=== PATIENT | female | born 1990 | race Caucasian/White ===

== ENCOUNTER 2016-06-26 07:56 | Day surgery (SDC) | payer OTHER ==
[~2016-06-26 07:56] MED LIST: Bupivacaine 0.5%/EPINEPHrine 1:200,000 50 ML MDV ONE; Dexamethasone 4 MG/ML 5 ML MDV ONE; HYDROmorphone 1 MG/ML Syringe ONE; Ketorolac 30 MG/ML SDV ONE; Lactated Ringers 1,000 ML IV SCH; Lidocaine 1% with EPINEPHrine 1:100,000 20 ML MDV ONE; Lidocaine 1%/Sod Bicarbonate in NS 8.4% 1 ML Syringe IV PRN; Midazolam 1 MG/ML 2 ML SDV ONE; Ondansetron 4 MG/2 ML SDV ONE; Propofol 200 MG/20 ML SDV ONE; Rocuronium 50 MG/5 ML Vial ONE; Sodium Chloride 0.9% 10 ML ONE; Sodium Chloride 0.9% 10 ML Syringe FLUSH PRN; ceFAZolin 1 GM Vial ONE; fentaNYL 250 MCG/5 ML SDV ONE
--- NOTE | 2016-06-26 08:49 | PCM.HP ---
Addendum entered and electronically signed by Marie Blair NP 06/26/16 09:46: Patient is no longer having rectal bleeding. Original Note: H&P History of Present Illness - General Date of Service: 06/26/16 Admit Problem/Dx: Abnormal/symptomatic HIDA scan, postprandial diarrhea, hx of rectal bleeding, upper abdominal pain with eating fatty meals Source of Information: Patient - History of Present Illness Initial Comments - Free Text/Narative: 26yr female who was initially referred by Dr. Meaghan Holder for hematochezia. The patient underwent diagnostic EGD/colonoscopy with polypectomy and excision of multiple skin lesions with Dr. Krista Lincoln at [facility] on 12/28/15 . Patient had a very large polyp removed from 60 cm from anal verge that was a tubular adenoma with high grade dysplasia, a one year follow up colonoscopy was recommended. Patient reported that hematochezia had resolved at the follow up appointment with Dr. Lincoln on 01/18/16. Gastritis and very small gastric ulcers were noted. GERD/gastritis diet was recommended. One month course of Carafate was recommended. Protonix 40 mg x 6 months was recommended. Skin lesions removed were compound nevi without atypia. She did also have internal hemorrhoids, banding was recommended with symptom recurrence. Stool studies were obtained and were negative with the exception of a few WBC in fecal lactoferrin test. Patient was last evaluated in clinic on 2016. She denies any changes to her health history with the exception that her rectal bleeding has decreased. She still having diarrhea every so often usually notices it when she is eatin out. She's no longer taking ibuprofen. She did not stop the Isagenix supplement as recommended. She reports a 13 pound weight loss. She is not taking Protonix consistently as recommended. At her last clinic visit she was still having rectal bleeding. She was having small amounts of blood in the toilet and with wiping. She was having blood on the stool with wiping. It was not with every bowel movement. It was occurring every third bowel movement. She was lower abdominal cramping, occasionally before stooling and during stooling. This was better after BM. She still has 2- 3 stools per day. She denies nausea/vomiting/constipation. Occasional diarrhea 3 -4 times per week. When she Started an Isagenix diet was having diarrhea with every stool. She was taking the 30 day Isagenix system. After taking the Cleanse for Life she did have a mucus, bloody discharge from her rectum, this was without having a stool. No reflux, heartburn, epigastric pain. She does have abdominal, upper/mid abdominal pain after eating out, will induce a diarrhea stool. She does have post prandial diarrhea at times, when she has not eaten out. She noted this with eating meatloaf at home. She does have urgency with stooling at times. She denies any ill contacts/bad water/ questionable food/antibiotics. No melena reported. Reports light colored/harrison stools "forever." She previously reported her symptoms came back shortly after endoscopy. She reports she does feel better than she did before the endoscopy, but still does not feel normal. She did have labs after last visit. CBC showed elevated: WBC count (13.6), ANS ( 8.6), and Monocytes (1.2). These are down from 10/2015, which are as follows: WBC 14.6, ANS 9.9, Monocyte 1.1. Hepatic fx tests normal with the exception of slightly increased protein 8.4. BMP was normal. C diff was not completed by patient. Abdominal ultrasound showed no gallstones. No gallbladder wall thickening or biliary duct dictation. Probably fatty infiltration within the liver. HIDA scan was completed on 05/02/2016 showed gallbladder ejection fraction low at 32%. Patient reported she had a stomachache after and had a stool when she came home. At one point she was taking 4 ibuprofen twice per week for headaches. She was also not taking the Protonix. She started the Protonix, after last visit. As above Protonix use is inconsistent. Headaches have started to go away. No longer taking ibuprofen. José Antonio gave her a FODMAP book , she did not try this. She previously was uncertain if she has hemorrhoids and declined rectal exam. Denies any exertional chest pain or shortness of breath. No history of any easy bleeding or bruising. No personal or familial history of clotting or bleeding disorders. No history of anesthetic complications. No history of familial anesthetic complications. Presently denies chest pain, palpitations, lower extremity edema, dyspnea, orthopnea, claudication, wheezing, obstructive sleep apnea, chronic cough, upper respiratory symptoms in the last two weeks. No history of blood thinner use. No history of anemia. Is not . No history of seizure or stroke. No prior cardiology or pulmonology evaluation - Related Data Allergies/Adverse Reactions: Allergies Allergy/AdvReac Type Severity Reaction Status Date / Time No Known Allergies Allergy Verified 06/25/16 13:58 Home Medications: Home Meds Pantoprazole [Protonix] 40 mg PO DAILY #30 tab.cr 12/28/15 [Rx] Aspirin 81 mg PO DAILY 06/25/16 [History] Ibuprofen 1 - 3 tab PO Q6H PRN 06/25/16 [History] Past Medical History HEENT History: Reports: Impaired vision, Other (see below) Other HEENT History: myopia, wears glasses Cardiovascular History: Reports: None Respiratory History: Reports: None Gastrointestinal History: Reports: Colon polyp, Gastritis, Other (see below) Other Gastrointestinal History: hematochezia, blood in stool, fatty liver, gastric ulcer, high grade dysplasia in colonic adenoma Genitourinary History: Reports: None, UTI, 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) Other OB/BYN History: irreg menses Musculoskeletal History: Reports: Back pain, chronic Neurological History: Reports: Headaches, chronic Psychiatric History: Reports: None Endocrine/Metabolic History: Reports: Other (see below) Other Endocrine/Metabolic History: fatigue Hematologic History: Reports: None Immunologic History: Reports: None Oncologic (Cancer) History: Reports: None - Past Surgical History Head Surgeries/Procedures: Reports: None HEENT Surgical History: Reports: Oral surgery, Other (see below) Other HEENT Surgeries/Procedures: teeth extraction GI Surgical History: Reports: Colonoscopy, EGD Dermatological Surgical History: Reports: Other (see below) Social & Family History - Tobacco Use Smoking Status *Q: Never Smoker Second Hand Smoke Exposure: No - Alcohol Use Days Per Week of Alcohol Use: 0 Number of Drinks Per Day: 0 Total Drinks Per Week: 0 - Recreational Drug Use Recreational Drug Use: No H&P Review of Systems - Review of Systems: Review Of Systems: See Below General: Reports: no symptoms. Denies: fever, chills, night sweats, diaphoresis HEENT: Reports: no symptoms Pulmonary: Reports: No Symptoms Cardiovascular: Reports: no symptoms Gastrointestinal: Reports: Other (see hpi) Genitourinary: Reports: no symptoms Musculoskeletal: Reports: no symptoms Skin: Reports: no symptoms Psychiatric: Reports: no symptoms Neurological: Reports: No Symptoms Hematologic/Lymphatic: Reports: no symptoms Immunologic: Reports: no symptoms Exam - Exam Exam: See Below - Vital Signs Vital Signs: Last Vital Signs Temp 96.4 F 06/26/16 08:17 Pulse 73 06/26/16 08:17 Resp 16 06/26/16 08:17 BP 124/80 06/26/16 08:17 Pulse Ox 95 06/26/16 08:17 Weight: 111.584 kg - Exam General: alert, oriented HEENT: Conjunctiva clear, Hearing intact. No: Scleral icterus Lungs: Clear to auscultation, Normal respiratory effort Cardiovascular: regular rate, regular rhythm, normal S1, normal S2 Abdomen: soft. No: distention, tenderness Back Exam: normal inspection Extremities: normal inspection. No: clubbing, cyanosis, edema Skin: warm, dry, intact Neuro Extensive - Mental Status: alert, oriented x3, normal mood/affect, normal cognition, memory intact Psychiatric: alert, normal affect, normal mood - Patient Data Lab Results last 24 hrs: Laboratory Results - last 24 hr 06/26/16 Range/Units 08:05 Urine HCG, Qual Negative (NEGATIVE) *Q Meaningful Use (ADM) - VTE *Q VTE Criteria *Q: - Stroke *Q Stroke Criteria *Q: - AMI *Q AMI Criteria *Q: Problem List Initiated/Reviewed/Updated: Yes Orders Last 24hrs: Active Orders 24 hr Category Date Time Status Peripheral IV Care [RC] . DIRECTED Care 06/26/16 00:01 Active Verify Patient Consent Obtain [RC] ASDIRECTED Care 06/26/16 00:01 Active Lactated Ringers [Ringers, Lactated] 1,000 ml Med 06/26/16 00:01 Active IV ASDIRECTED Lidocaine 1%/Sod Bicarbonate [Buffered Lidocaine 1% in Med 06/26/16 00:01 Active NS 8.4%] 0.25 ml IV ONETIME PRN Sodium Chloride 0.9% [Saline Flush] Med 06/26/16 00:01 Active 10 ml FLUSH ASDIRECTED PRN Medication Administration Instruction [OM.PC] Routine Oth 06/26/16 00:01 Ordered Peripheral IV Insertion Adult [OM.PC] Routine Oth 06/26/16 00:01 Ordered Medication Orders Lactated Ringer's (Ringers, Lactated) 1,000 mls @ 125 mls/hr IV ASDIRECTED JALIL Stop: 06/26/16 23:00 Last Admin: 06/26/16 08:25 Dose: 125 mls/hr Lidocaine/Sodium Bicarbonate (Buffered Lidocaine 1% In Ns 8.4%) 0.25 ml IV ONETIME PRN PRN Reason: Prior to IV Start Stop: 06/26/16 18:00 Last Admin: 06/26/16 08:25 Dose: 0.25 ml Sodium Chloride (Saline Flush) 10 ml FLUSH ASDIRECTED PRN PRN Reason: Keep Vein Open Stop: 06/26/16 18:00 Assessment/Plan Comment:: 26yr female with history of high grade dysplasia in colonic adenoma, hx of hematochezia, hx of rectal bleeding, hx of hemorrhoids, diarrhea, post prandial diarrhea, urgency with stools, light colored stools, lower abdominal cramping, hx of gastritis and gastric ulcers. Low ejection fraction and Symptomatic HIDA Fatty liver Plan: Dr. Lincoln Discussed performing laparoscopic cholecystectomy due to low EF (32% ) and right upper quadrant abdominal pain after fatty meals. The patient is also having postprandial diarrhea. At the same time, Dr. Lincoln will will look in her lower abdomen for any evidence of fibroid tumors, ovarian or uterine abnormalities, or endometriosis. Patient's rectal bleeding has improved. Patient elected not to have hemorrhoidal banding completed this time. Should rectal bleeding recur hemorrhoidal banding can be performed in office. We discussed laparoscopic cholecystectomy for treatment of abnormal HIDA and associated symptoms. We discussed risks of the procedure including pain, bleeding, need for additional procedures, damage to surrounding structures including the biliary system and common bile duct, liver, small bowel, stomach and colon. We discussed the risk of postoperative change in bowel habits which can be permanent. We reviewed the post-operative lifting restrictions of no more than 20 lbs for 4 weeks. The patient's questions were answered. For the probable fatty liver infiltration patient and recommended low-fat low simple carbohydrate primary care provider for monitor liver enzymes. Discussed again she stop the Isagenix supplement as there are gastric irritants and cathartics in all the supplements. These will worsen her symptoms. she should try to eat a lower simple carbohydrate diet, higher protein, focusing on whole foods. Again discussed She should continue a GERD gastritis diet and continue her Protonix. The patient verbalized understanding and agreed with care plan. Patient evaluated with Dr. Lincoln, plan formulated by Dr. Salazar Blair, HAND METHOD LASTING MACHINE OPERATOR-C scribing for Dr. Krista Lincoln General Surgery .
[2016-06-26] MEDS ORDERED: fentaNYL 100 MCG/2 ML SDV ONE (10:48)
--- NOTE | 2016-06-26 11:07 | PCM.OPNOTE ---
- General Post-Op/Procedure Note Date of Surgery/Procedure: 06/26/16 Operative Procedure(s): Laparoscopic cholecystectomy Pre Op Diagnosis: Biliary dyskinesia Post-Op Diagnosis: Chronic cholecystitis Anesthesia Technique: General ET tube, Local (30 mL) Primary Surgeon: Krista Lincoln Anesthesia Provider: Meaghan Negron Pathology: Gallbladder and contents Fluid Replacement, Intraop: 1,800 (mL crystalloid) EBL in mLs: 5 Complications: None Condition: Good Free Text/Narrative:: INDICATION FOR PROCEDURE: The patient is a 26-year-old woman who had been referred to me by Dr. Meaghan Holder. She was found to have biliary dyskinesia. Laparoscopic cholecystectomy was discussed with the patient and associated risks of the procedure. The patient found these risks acceptable and agreed to proceed. DESCRIPTION OF PROCEDURE: The patient was taken to the operating room and placed in the supine position. Sequential compressive devices were placed on the bilateral lower extremities. After induction of general endotracheal anesthesia, the abdomen was prepped and draped in the usual sterile fashion. Preoperative antibiotics had been administered as per protocol. A supraumbilical curvilinear incision was made using a scalpel. This was deepened down through the subcutaneous tissues to the anterior abdominal wall fascia which was elevated and incised. The abdomen was bluntly entered using a hemostat. An 0 Vicryl stay suture was placed. A Huitron cannula was introduced into the abdomen and the abdomen was insufflated to 15 mm of mercury. The abdomen was then surveyed. The patient's bladder was slightly distended and the uterus and ovaries were unable to be visualized despite steep Trendelenburg. The appendix was unremarkable. The visualized portions of the small large intestine were unremarkable. The liver appeared to have slight fatty change. Attention was turned then to the patient's gallbladder which was white in color with omental adhesions and adhesions to the duodenum. Two additional 5 mm trocars were then placed under direct visualization after first injecting local anesthetic, one in the epigastrium and one in the right subcostal margin. The gallbladder fundus was elevated, and the triangle of Calot was dissected. A retraction suture was placed in the gallbladder fundus to facilitate dissection. The critical view of safety was obtained. The cystic duct and the cystic artery were triply clipped and transected using Endo Paieg. The gallbladder was then taken off the liver bed using hook electrocautery. The gallbladder was placed into an EndoCatch bag. The abdomen was irrigated and suctioned until the effluent was clear. The liver bed was reinspected for hemostasis. The 5 mm trocars were removed with no evidence of bleeding. The Huitron cannula and gallbladder within the EndoCatch bag were then removed. The patient's fascial incision was closed using an 0 Vicryl [id number] suture. Additional local anesthetic was injected jelani-incisionally. The incisions were then closed using subcuticular 4-0 Monocryl suture. Dermabond was placed over the patient's skin incisions. The patient was then awakened from anesthesia, extubated, and transferred to the recovery room in stable condition having tolerated the procedure well. Sponge and instrument counts were reported as correct at the end of the case. POSTOPERATIVE PLAN: The patient will be discharged home today. Prescriptions for Percocet 5/325mg were given in addition to Zofran ODT and Senna-S. They will follow up in 2 weeks for a post-operative check. They are not lift over 20 pounds for the next 4 weeks. They are to call the office with any questions or concerns. I discussed my intraoperative findings and discharge instructions with the patient 's .
[2016-06-26] MEDS ORDERED: fentaNYL 100 MCG/2 ML SDV IVPUSH PRN (11:20)
[2016-06-26] MEDS ORDERED: Ondansetron 4 MG/2 ML SDV IVPUSH PRN (11:20)
[2016-06-26] MEDS ORDERED: Metoclopramide 10 MG/2 ML SDV IVPUSH PRN (11:20)
--- NOTE | 2016-06-26 11:20 | PCM.POSTAN ---
POST ANESTHESIA ASSESSMENT - MENTAL STATUS Mental Status: alert, oriented - VITAL SIGNS Pulse Rate: 96 SaO2: 98 Resp Rate: 16 Blood Pressure: 151/96 Temperature: 36.4 C - RESPIRATORY Respiratory Status: respiratory rate WNL, airway patent, O2 saturation stable, supplemental oxygen - CARDIOVASCULAR CV Status: pulse rate WNL, blood pressure stable - GASTROINTESTINAL GI Status: no symptoms - PAIN Pain Score: 3 (fentanyl given) - POST OP HYDRATION Hydration Status: adequate & stable
[2016-06-26] MEDS: HYDROmorphone 0.5 MG/0.5 ML Syringe IVPUSH PRN ×2 (11:36→11:52)
[2016-06-26 13:23] VITALS: BP 130/75
[2016-06-26] MEDS ORDERED: Acetaminophen/oxyCODONE 325-5 MG Tab PO ONE (13:50)
== END 2016-06-26 14:03 | disposition home or self-care (01) ==
LOC: JD.SDS 07:56
PROVIDERS: ATTEND Surgery
DX: K81.1 Chronic cholecystitis (principal); K21.9 Gastro-esophageal reflux disease without esophagitis; K76.0 Fatty (change of) liver, not elsewhere classified; E66.9 Obesity, unspecified; Z68.41 Body mass index [BMI] 40.0-44.9, adult; Z98.890 Other specified postprocedural states; Z79.899 Other long term (current) drug therapy
CPT/HCPCS: 47562; 81025; 88304; A9270; J0690; J1100; J1170; J1885; J2250; J2405; J3010; J7120; 00790; J2704

== ENCOUNTER 2016-12-30 06:57 | Day surgery (SDC) | payer OTHER ==
[2016-12-30] MEDS ORDERED: Sodium Chloride 0.9% 10 ML Syringe FLUSH PRN (07:00)
[2016-12-30] MEDS ORDERED: Lidocaine 1%/Sod Bicarbonate in NS 8.4% 1 ML Syringe PRN (07:00)
[2016-12-30] MEDS ORDERED: Lactated Ringers 1,000 ML IV SCH (07:00)
[2016-12-30] MEDS ORDERED: Propofol 200 MG/20 ML SDV ONE ×2 (07:04→10:12)
[2016-12-30] MEDS ORDERED: Lidocaine 1% 4 ML ONE (07:04)
[2016-12-30] MEDS ORDERED: fentaNYL 100 MCG/2 ML SDV ONE (07:04)
--- NOTE | 2016-12-30 07:26 | PCM.PREANE ---
Preanesthetic Assessment - Procedure Proposed Procedure: Surveillance colonoscopy - Anesthesia/Transfusion/Family Hx Anesthesia History: Prior Anesthesia Without Reaction Family History of Anesthesia Reaction: No Transfusion History: No Prior Transfusion(s) - Review of Systems General: No Symptoms Pulmonary: No Symptoms Cardiovascular: No Symptoms Gastrointestinal: No Symptoms Neurological: No Symptoms Other: Reports: None - Physical Assessment NPO Status Date: 12/29/16 NPO Status Time: 22:00 Pulse: 85 O2 Sat by Pulse Oximetry: 95 Respiratory Rate: 16 Blood Pressure: 135/70 Temperature: 36.4 C Height: 1.68 m Weight: 111.584 kg ASA Class: 2 Mental Status: Alert & Oriented x3 Airway Class: Mallampati = 1 Dentition: Reports: Normal Dentition Thyro-Mental Finger Breadths: 3 ROM/Head Extension: Full Lungs: Clear to Auscultation, Normal Respiratory Effort Cardiovascular: Regular Rate, Regular Rhythm - Allergies Allergies/Adverse Reactions: Allergies Allergy/AdvReac Type Severity Reaction Status Date / Time No Known Allergies Allergy Verified 12/27/16 14:23 - Blood Blood Available: No Product(s) Available: None - Anesthesia Plan Pre-Op Medication Ordered: None - Acknowledgements Anesthesia Type Planned: MAC Pt an Appropriate Candidate for the Planned Anesthesia: Yes Alternatives and Risks of Anesthesia Discussed w Pt/Guardian: Yes Pt/Guardian Understands and Agrees with Anesthesia Plan: Yes PreAnesthesia Questionnaire HEENT History: Reports: Impaired Vision, Other (See Below) Other HEENT History: myopia, wears glasses Cardiovascular History: Reports: None Respiratory History: Reports: None Gastrointestinal History: Reports: Colon Polyp, Gastritis, Hemorrhoids, PUD, Other (See Below) Other Gastrointestinal History: hematochezia, blood in stool, fatty liver, gastric ulcer, high grade dysplasia in colonic adenoma Genitourinary History: Reports: None, UTI, 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: Polycystic Ovaries, Other (See Below) Other OB/BYN History: irreg menses Musculoskeletal History: Reports: Back Pain, Chronic Neurological History: Reports: Headaches, Chronic Psychiatric History: Reports: None, Other (See Below) Other Psychiatric History: atypical nevi Endocrine/Metabolic History: Reports: Other (See Below) Other Endocrine/Metabolic History: fatigue Hematologic History: Reports: None Immunologic History: Reports: None Oncologic (Cancer) History: Reports: None - Past Surgical History Head Surgeries/Procedures: Reports: None HEENT Surgical History: Reports: Oral Surgery, Other (See Below) Other HEENT Surgeries/Procedures: teeth extraction Cardiovascular Surgical History: Reports: None GI Surgical History: Reports: Colonoscopy, EGD Female Surgical History: Reports: None Male Surgical History: Reports: None Endocrine Surgical History: Reports: None Neurological Surgical History: Reports: None Dermatological Surgical History: Reports: Other (See Below) - SUBSTANCE USE Smoking Status *Q: Never Smoker Tobacco Use Within Last Twelve Months: No Second Hand Smoke Exposure: No Days Per Week of Alcohol Use: 0 Number of Drinks Per Day: 0 Total Drinks Per Week: 0 Recreational Drug Use History: No - HOME MEDS Home Medications: Home Meds Aspirin 81 mg PO DAILY 06/25/16 [History] Ibuprofen 1 - 3 tab PO Q6H PRN 06/25/16 [History] - CURRENT (IN HOUSE) MEDS Current Meds: Current Medications Lactated Ringer's (Ringers, Lactated) 1,000 mls @ 125 mls/hr IV ASDIRECTED JALIL Stop: 12/30/16 23:00 Lidocaine/Sodium Bicarbonate (Buffered Lidocaine 1% In Ns 8.4%) 0.25 ml .XX ONETIME PRN PRN Reason: Prior to IV Start Stop: 12/30/16 18:00 Sodium Chloride (Saline Flush) 10 ml FLUSH ASDIRECTED PRN PRN Reason: Keep Vein Open Stop: 12/30/16 18:00 Discontinued Medications Fentanyl (Sublimaze) Confirm Administered Dose 100 mcg .ROUTE .STK-MED ONE Stop: 12/30/16 07:05 Lidocaine HCl (Xylocaine-Mpf 1%) Confirm Administered Dose 4 mls @ as directed .ROUTE .STK-MED ONE Stop: 12/30/16 07:05 Propofol (Diprivan 20 Ml) Confirm Administered Dose 200 mg .ROUTE .STK-MED ONE Stop: 12/30/16 07:05
--- NOTE | 2016-12-30 08:50 | HP ---
DATE OF ADMISSION: 12/30/2016 HISTORY OF PRESENT ILLNESS: The patient presents here with need for a surveillance colonoscopy, 2016 had a polyp removed, which showed high-grade dysplasia, and she is having a repeat colonoscopy. She is 26 years old. It was located at 60 cm from the anal verge. REVIEW OF SYSTEMS: No rectal bleeding, nausea, vomiting, indigestion, or gas pain. No real change in bowel habits. PAST MEDICAL HISTORY: History of gastric ulcer in the past, high-grade dysplasia, and colonic adenoma. Medical problems are that of history of gastritis, peptic ulcer disease, and internal hemorrhoids in the past. PAST SURGICAL HISTORY: Lap dustin in the past and colonoscopy. CURRENT MEDICATIONS: Per medication reconciliation form. ALLERGIES: No known allergies. SOCIAL HISTORY: No smoking. No drinking. FAMILY HISTORY: Alzheimer disease in parental grandparents. PHYSICAL EXAMINATION: GENERAL: Reveals alert, cooperative female. VITAL SIGNS: Blood pressure 120/70, pulse 76, and BMI is 41.8. HEAD AND NECK: Unremarkable. NECK: Supple. LUNGS: Clear. No rales, rhonchi, fremitus, or dullness. CARDIAC: Heart tones regular rate. No S3, S4, jugular venous distention. ABDOMEN: Soft. No tenderness, guarding, or rebound. EXTREMITIES: No edema. Moves all 4 extremities and no angulation deformities. SKIN: Warm and dry. MUSCULOSKELETAL: No assist device. NEUROLOGIC: 3 through 12 cranial nerves intact. No focal deficit. Alert and oriented. PSYCH: Behavior normal. ASSESSMENT: Colonic polyp, which is quite large, high-grade dysplasia located at 60 cm. PLAN: For repeat colonoscopy. MMODAL /[id number]
--- NOTE | 2016-12-30 10:11 | PCM.OPNOTE ---
- General Post-Op/Procedure Note Date of Surgery/Procedure: 12/30/16 Operative Procedure(s): colonoscopy to cecum surveillance colonoscopy Findings: normal study Pre Op Diagnosis: hx of dysplastic polyp Post-Op Diagnosis: Same Anesthesia Technique: MAC Primary Surgeon: Gregg Merino EBL in mLs: 0 Complications: None Condition: Good
[2016-12-30 10:16] VITALS: BP 89/46
[2016-12-30] MEDS ORDERED: Ketorolac 30 MG/ML SDV ONE (10:35)
--- NOTE | 2016-12-30 11:36 | PCM48HPAN ---
Post Anesthesia Note - EVALUATION WITHIN 48HRS OF ANESTHETIC Vital Signs in Normal Range: Yes Patient Participated in Evaluation: Yes Respiratory Function Stable: Yes Airway Patent: Yes Cardiovascular Function Stable: Yes Hydration Status Stable: Yes Pain Control Satisfactory: Yes Nausea and Vomiting Control Satisfactory: Yes Mental Status Recovered: Yes
--- NOTE | 2016-12-30 12:56 | OR ---
DATE OF OPERATION: 12/30/2016 SURGEON: Gregg Merino MD PREOPERATIVE DIAGNOSIS: History of dysplastic polyp at 60 cm. POSTOPERATIVE DIAGNOSIS: History of dysplastic polyp at 60 cm. OPERATION PERFORMED: Colonoscopy to cecum. FINDINGS: Normal study. RECOMMENDATION: Repeat colonoscopy in 3 years. ANESTHESIA: Procedure done under IV sedation. DESCRIPTION OF PROCEDURE: The patient was taken to the endoscopy room, placed in a supine position, connected to monitoring equipment, given IV sedation, and placed in a left lateral position. Perianal area was inspected and showed hemorrhoidal tags. Rectal exam showed good sphincter tone. A video Olympus colonoscope was then introduced into the rectum and threaded up without problem to the cecum, where the appendicular orifice with ileocecal valve was noted. Prep was excellent. [place] cleansing score grade A. The scope was slowly withdrawn showing the cecum, ascending colon, transverse colon, descending colon, sigmoid colon, and rectum. The patient tolerated the procedure, was sent to recovery room in a stable condition, and will be followed up as needed in the clinic. ESTIMATED BLOOD LOSS: MMODAL /[id number]
== END 2016-12-30 10:55 | disposition home or self-care (01) ==
LOC: JD.SDS 06:57
PROVIDERS: ATTEND Surgery
DX: Z09 Encounter for follow-up examination after completed treatment for conditions other than malignant neoplasm (principal); K64.4 Residual hemorrhoidal skin tags; Z86.010 Personal history of colon polyps; Z87.11 Personal history of peptic ulcer disease; Z87.440 Personal history of urinary (tract) infections; Z90.49 Acquired absence of other specified parts of digestive tract; Z98.890 Other specified postprocedural states; Z98.818 Other dental procedure status; Z79.82 Long term (current) use of aspirin
CPT/HCPCS: 45378; 81025; J1885; J3010; J7120; 00810; J2704